=== PATIENT | female | born 1970 | race Caucasian/White ===

== ENCOUNTER 2016-10-02 07:53 | Inpatient (IN) | payer OTHER, BC ==
[2016-10-02 07:59] VITALS: BMI 39.4
[2016-10-02] MEDS ORDERED: DIPHTH,PERTUSS(ACELL),TET 0.5 ML DISP.SYRIN IM ONE (08:29)
--- NOTE | 2016-10-02 09:03 | PDOC ---
History of Present Illness - General Chief Complaint: Injury Stated Complaint: INJURY Time Seen by Provider: 10/02/16 08:22 History Source: Patient Exam Limitations: No Limitations - History of Present Illness Initial Comments: 10/02/16 08:49 Patient is a 46-year-old morbidly obese female, history of asthma denies any other significant medical history presents emergency Department with pain, pustulant drainage to right first finger originating from under nail bed. Patient states that infection started after cleaning air vents at work using a floor stripping agent. Was seen in urgent care on 09/26/16. Xray was eprformed and patient was started on azithromycin. Now reports stabbing pain to the 1st finger entending to the palm of the hand, decreased mobility of the PIP right first finger, stabbing pain on extension. Patient reports being unable to sleep , has to keep finger in cup of cold water.Has been taking Motrin 800 mg for pain with no resolve. Paitent denies fever, no chills, or rigors. Allergies: Seafood, PCN, bee stings Medications: Azithromycin, proair Family History: Non-contributory Social History: + smoker, no alcohol use, or IVDU Vital signs on arrival are notable for pulse of 88 . Review of Systems GENERAL/CONSTITUTIONAL: No fever or chills. No weakness. No weight change. HEAD, EYES, EARS, NOSE AND THROAT: No change in vision. No ear pain or discharge. No sore throat. CARDIOVASCULAR: No chest pain or shortness of breath. RESPIRATORY: No cough, wheezing, or hemoptysis. GASTROINTESTINAL: No nausea, vomiting, diarrhea or constipation. No rectal bleeding. GENITOURINARY: No dysuria, frequency, or change in urination. MUSCULOSKELETAL: No joint or muscle swelling or pain. No neck or back pain. Pain decreased mobility to the right first finger, pain with extension. SKIN: Erythema to the right first finger tip, + pustulent drainage NEUROLOGIC: No headache, vertigo, loss of consciousness, or loss of sensation. PSYCHIATRIC: No depression or anxiety. ENDOCRINE: No increased thirst. No abnormal weight change. HEMATOLOGIC/LYMPHATIC: No anemia, easy bleeding, or history of blood clots. ALLERGIC/IMMUNOLOGIC: No hives or skin allergy. No latex allergy. Physical Exam: GENERAL: The patient is awake, alert, and fully oriented, in no acute distress. EYES: Pupils equal, round and reactive to light, extraocular movements intact, sclera anicteric, conjunctiva clear. ENT: Ears normal, nares patent, oropharynx clear without exudates. Moist mucous membranes. No uvula deviation NECK: Normal range of motion, supple without lymphadenopathy, JVD, or masses. LUNGS: Breath sounds equal, clear to auscultation bilaterally. No wheezes, and no crackles. HEART: Regular rate and rhythm, normal S1 and S2 without murmur, rub or gallop. ABDOMEN: Soft, nontender, normoactive bowel sounds. No guarding, no rebound. No masses. No bruising or abrasions MUSCULOSKELETAL: Decreased ROM to the right first finger, pain with minor extension, +edema, + pustulent drainge to the tip of the right first finger. + streaking lateral aspect of same. NEUROLOGICAL: Cranial nerves II through XII grossly intact. Normal speech, normal gait. SKIN: Warm, Dry, normal turgor, no rashes or lesions noted. as noted above. Past History - Past Medical History Allergies/Adverse Reactions: Allergies Allergy/AdvReac Type Severity Reaction Status Date / Time bee pollen Allergy Verified 10/02/16 07:55 Penicillins Allergy Verified 10/02/16 07:55 Asthma: Yes - Psycho/Social/Smoking Cessation Hx Anxiety: No Suicidal Ideation: No Smoking History: Current every day smoker Have you smoked in the past 12 months: Yes Number of Cigarettes Smoked Daily: 20 Information on smoking cessation initiated: Yes 'Breaking Loose' booklet given: 10/02/16 Hx Alcohol Use: No Drug/Substance Use Hx: No Substance Use Type: None *Physical Exam - Vital Signs Last Vital Signs Temp Pulse Resp BP Pulse Ox 97.7 F 88 18 129/77 100 10/02/16 07:55 10/02/16 07:55 10/02/16 07:55 10/02/16 07:55 10/02/16 07:55 ED Treatment Course - LABORATORY CBC & Chemistry Diagram: 10/03/16 06:00 10/03/16 06:00 - Medications Given in the ED: ED Medications Discontinued Medications Generic Name Dose Route Start Last Admin Trade Name Freq PRN Reason Stop Dose Admin Diphtheria/Tetanus/Acell Pertussis 0.5 ml 10/02/16 08:29 10/02/16 08:39 Boostrix - IM 10/02/16 08:30 0.5 ml .ONCE ONE Administration Medical Decision Making - Medical Decision Making 10/02/16 09:26 A/P : Patient with infection noted to right first streaking, failed one week antibiotic course, azithromycin. Patient with increased pain, decreased mobility , high concern for flexor tendon involvement. Patient will be transferred to main emergency department for 23 hour observation, IV antibiotics and further evaluation. Report given to Dr. Goldsmith. Patient stable for transfer. Patient was initially triaged to [facility]. After review of the history of present illness and physical examination by Nurse Practitioner, the patient was transferred to the main ED for higher lever of care. The patient is medically stable for transfer. 10/02/16 12:16 *DC/Admit/Observation/Transfer Diagnosis at time of Disposition: Flexor carpi radialis tenosynovitis - Discharge Dispostion Condition at time of disposition: Stable
[2016-10-02] MEDS ORDERED: CLINDAMYCIN 600MG PREMIX IVPB 50 ML IVPB ONE ×2 (09:31→10:02)
[2016-10-02] MEDS ORDERED: LEVOFLOXACIN 750 MG IVPB 150 ML IVPB ONE ×2 (09:33→10:03)
--- NOTE | 2016-10-02 09:37 | PDOC ---
*Physical Exam - Vital Signs Last Vital Signs Temp Pulse Resp BP Pulse Ox 97.7 F 88 18 129/77 100 10/02/16 07:55 10/02/16 07:55 10/02/16 07:55 10/02/16 07:55 10/02/16 07:55 - Physical Exam General Appearance: Yes: Nourished, Obese. No: Apparent Distress HEENT: positive: Normal Voice, Hearing Grossly Normal Respiratory/Chest: positive: Wheezing (diffuse b/l expiratory wheezes). negative: Chest Tender Cardiovascular: positive: Regular Rhythm, Regular Rate, S1, S2. negative: Diastolic Murmur, Systolic Murmur Gastrointestinal/Abdominal: positive: Flat, Soft, Protuberent. negative: Tender Musculoskeletal: negative: CVA Tenderness, CVA Tenderness (R), CVA Tenderness (L ) Extremity: positive: Swelling (+1 b/l LE) Integumentary: positive: Dry, Warm Neurologic: positive: Fully Oriented, Alert, Normal Mood/Affect, Motor Strength 06/16 ED Treatment Course - LABORATORY CBC & Chemistry Diagram: 10/03/16 06:00 10/03/16 06:00 - Medications Given in the ED: ED Medications Discontinued Medications Generic Name Dose Route Start Last Admin Trade Name Freq PRN Reason Stop Dose Admin Diphtheria/Tetanus/Acell Pertussis 0.5 ml 10/02/16 08:29 10/02/16 08:39 Boostrix - IM 10/02/16 08:30 0.5 ml .ONCE ONE Administration Medical Decision Making - Medical Decision Making 10/02/16 09:33 Patient is transferred from [facility] track. 46F with a PMH of obesity and asthma presents to the ED with a painful R 1st digit. She states that pus is draining from the site. She was cleaning with an abrasive material and is unsure if there are foreign bodies in the hand. XR ordered. I will put in basic labs and treat with IV abx (levaquin for pseudomonas coverage and clinda for soft tissue infection) 10/02/16 10:02 10/02/16 11:19 Labs WNL. Will call hospitalist for obs admission for IV abx. *DC/Admit/Observation/Transfer Diagnosis at time of Disposition: Flexor carpi radialis tenosynovitis - Discharge Dispostion Condition at time of disposition: Stable Admit: Yes - Attestations Physician Attestion: 10/04/16 08:35 I, Dr. Cornell Goldsmith, attest that this document has been prepared under my direction and personally reviewed by me in its entirety. I further attest, that it accurately reflects all work, treatment, procedures and medical decision -making performed by me.
[2016-10-02 10:41] LABS: BASOPHIL 0.8 % (0-2.0); EOSINOPHIL 2.1 % (0-4.5); MCH 29.8 pg (25.7-33.7); MCHC 34.1 g/dl (32.0-36.0); MEAN CELL VOLUME 87.5 fl (80-96); NEUTROPHILS 65.9 % (42.8-82.8); PLATELET COUNT 241 K/MM3 (134-434); WHITE BLOOD COUNT 9.9 K/mm3 (4.0-10.0)
[2016-10-02 11:01] LABS: ALBUMIN 3.8 g/dl (3.4-5.0); ANION GAP 8 (8-16); CALCIUM 8.7 mg/dL (8.5-10.1); CO2 28 mmol/L (21-32); GLUCOSE,RANDOM 139 mg/dL (74-106); SGOT/AST 13 U/L (15-37); SGPT/ALT 25 U/L (12-78)
[2016-10-02 11:03] LABS: ALK PHOS 98 U/L (45-117); BILIRUBIN,TOTAL 0.5 mg/dL (0.2-1.0); CREATININE 0.8 mg/dL (0.55-1.02); TOT PROT 7.2 g/dl (6.4-8.2)
[2016-10-02] MEDS ORDERED: IBUPROFEN 400 MG TABLET (FP) PO ONE ×2 (11:52→12:10)
--- NOTE | 2016-10-02 16:24 | PDOC ---
*Physical Exam - Vital Signs Last Vital Signs Temp Pulse Resp BP Pulse Ox 97.7 F 88 18 129/77 100 10/02/16 07:55 10/02/16 07:55 10/02/16 07:55 10/02/16 07:55 10/02/16 07:55 ED Treatment Course - LABORATORY CBC & Chemistry Diagram: 10/02/16 10:00 10/02/16 10:00 - ADDITIONAL ORDERS Additional order review: Laboratory Results 10/02/16 10:00 Sodium 140 Potassium 4.0 Chloride 104 Carbon Dioxide 28 Anion Gap 8 BUN 13 Creatinine 0.8 Creat Clearance w eGFR > 60 Random Glucose 139 H Calcium 8.7 Total Bilirubin 0.5 AST 13 L ALT 25 Alkaline Phosphatase 98 Total Protein 7.2 Albumin 3.8 10/02/16 09:18 Gram Stain - Final Finger - Right Thumb 10/02/16 10:00 RBC 4.86 MCV 87.5 MCHC 34.1 RDW 14.0 MPV 9.0 Neutrophils % 65.9 Lymphocytes % 24.2 Monocytes % 7.0 Eosinophils % 2.1 Basophils % 0.8 - Medications Given in the ED: ED Medications Discontinued Medications Generic Name Dose Route Start Last Admin Trade Name Freq PRN Reason Stop Dose Admin Diphtheria/Tetanus/Acell Pertussis 0.5 ml 10/02/16 08:29 10/02/16 08:39 Boostrix - IM 10/02/16 08:30 0.5 ml .ONCE ONE Administration Clindamycin Phosphate 50 mls @ 100 mls/hr 10/02/16 09:31 10/02/16 09:35 Cleocin 600 Mg Premix Ivpb - IVPB 10/02/16 10:00 100 mls/hr ONCE ONE Administration Levofloxacin 150 mls @ 100 mls/hr 10/02/16 09:33 10/02/16 10:55 Levaquin 750 Mg Premixed Ivpb - IVPB 10/02/16 11:02 100 mls/hr ONCE ONE Administration Ibuprofen 800 mg 10/02/16 11:52 10/02/16 12:13 Motrin - PO 10/02/16 11:53 800 mg ONCE ONE Administration Medical Decision Making - Medical Decision Making 10/02/16 16:20 I agree with VACUUM CASTER Andolino's history, assessment and plan. In summary, patient was treated for an outpatient paronychia with azithromycin and presents today with worsening redness tracking down her right thumb. Concern is for flexor tenosynovitis, patient has pain with passive extension and pain with flexion as well. Entire flexor tendon is tender to palpation. Will cover patient with levaquin and clinda for pseudomonas and MRSA coverage. WIll also admit to obs to ensure improvement with abx and for possible ortho eval. *DC/Admit/Observation/Transfer Diagnosis at time of Disposition: Flexor carpi radialis tenosynovitis - Discharge Dispostion Condition at time of disposition: Stable - Attestations Physician Attestion: 10/02/16 18:07 I, Dr. Michoacano Torres MD, attest that this document has been prepared under my direction and personally reviewed by me in its entirety. I further attest, that it accurately reflects all work, treatment, procedures and medical decision -making performed by me.
--- NOTE | 2016-10-02 17:19 | EKG ---
Test Reason : Blood Pressure : / mmHG Vent. Rate : 073 BPM Atrial Rate : 073 BPM P-R Int : 168 ms QRS Dur : 090 ms QT Int : 410 ms P-R-T Axes : 056 083 040 degrees QTc Int : 451 ms NORMAL SINUS RHYTHM NORMAL ECG NO PREVIOUS ECGS AVAILABLE Confirmed by JOVANA MENDOZA MD ([id number]) on 10/02/2016 5:19:00 PM Referred By: Confirmed By:JOVANA MENDOZA MD
--- NOTE | 2016-10-02 19:01 | HP ---
Admitting History and Physical - Primary Care Physician PCP: Bonnie Mireles - Admission History of Present Illness: 46-year-old morbidly obese female, history of asthma denies any other significant medical history presents emergency Department with pain, pustulant drainage to right first finger originating from under nail bed. Patient states that infection started after cleaning air vents at work using a floor stripping agent. Was seen in urgent care on 09/26/16. Xray was eprformed and patient was started on azithromycin. Now reports stabbing pain to the 1st finger entending to the palm of the hand, decreased mobility of the PIP right first finger, stabbing pain on extension. - Past Medical History Pulmonary: Yes: Asthma - Smoking History Smoking history: Current every day smoker Have you smoked in the past 12 months: Yes Aproximately how many cigarettes per day: 20 - Alcohol/Substance Use Hx Alcohol Use: No Home Medications - Allergies Allergies/Adverse Reactions: Allergies Allergy/AdvReac Type Severity Reaction Status Date / Time bee pollen Allergy Verified 10/02/16 07:55 Penicillins Allergy Verified 10/02/16 07:55 Physical Examination Vital Signs: Vital Signs Temperature 97.7 F 10/02/16 07:55 Pulse Rate 88 10/02/16 07:55 Respiratory Rate 18 10/02/16 07:55 Blood Pressure 129/77 10/02/16 07:55 O2 Sat by Pulse Oximetry (%) 100 10/02/16 07:55 Constitutional: Yes: No Distress HENT: Yes: Atraumatic Neck: Yes: Supple Cardiovascular: Yes: Regular Rate and Rhythm Respiratory: Yes: CTA Bilaterally Gastrointestinal: Yes: Normal Bowel Sounds Extremities: Yes: Other (cellulitis R THUMB) Peripheral Pulses WNL: Yes Neurological: Yes: Alert, Oriented Problem List - Problems (1) Flexor carpi radialis tenosynovitis Assessment/Plan: IV ABX Code(s): M65.9 - SYNOVITIS AND TENOSYNOVITIS, UNSPECIFIED Assessment/Plan Laboratory Tests 10/02/16 10/02/16 10:00 10:00 WBC 9.9 RBC 4.86 Hgb 14.5 Hct 42.6 MCV 87.5 MCH 29.8 MCHC 34.1 RDW 14.0 Plt Count 241 MPV 9.0 Neutrophils % 65.9 Lymphocytes % 24.2 Monocytes % 7.0 Eosinophils % 2.1 Basophils % 0.8 Sodium 140 Potassium 4.0 Chloride 104 Carbon Dioxide 28 Anion Gap 8 BUN 13 Creatinine 0.8 Creat Clearance w eGFR > 60 Random Glucose 139 H Calcium 8.7 Total Bilirubin 0.5 AST 13 L ALT 25 Alkaline Phosphatase 98 Total Protein 7.2 Albumin 3.8 Active Medications Generic Name Dose Route Start Last Admin Trade Name Freq PRN Reason Stop Dose Admin Acetaminophen 650 mg 10/02/16 19:03 Tylenol - PO Q6H PRN FEVER OR PAIN Clindamycin Phosphate 50 mls @ 100 mls/hr 10/02/16 21:00 10/04/16 09:57 Cleocin 300 Mg Premix Ivpb IVPB 100 mls/hr Q6H-IV BECKIE Administration Ibuprofen 800 mg 10/03/16 11:47 10/03/16 18:10 Motrin - PO 800 mg Q6H PRN Administration PAIN
[2016-10-02] MEDS ORDERED: ACETAMINOPHEN 325 MG TABLET (FP) PO PRN (19:03)
[2016-10-02] MEDS: CLINDAMYCIN 300 MG PREMIX IVPB 50 ML IVPB SCH ×2 (22:00→22:54)
[2016-10-02] MEDS ORDERED: oxyCODONE HCL 5 MG TABLET PO PRN (22:01)
[2016-10-02] MEDS: CLINDAMYCIN HCL 150 MG CAPSULE (FP) PO SCH (23:36)
[2016-10-03] MEDS: CLINDAMYCIN HCL 150 MG CAPSULE (FP) PO SCH (03:38)
[2016-10-03] MEDS ORDERED: IBUPROFEN 400 MG TABLET (FP) PO ONE (06:00)
[2016-10-03 07:46] LABS: BASOPHIL 0.8 % (0-2.0); EOSINOPHIL 3.5 % (0-4.5); MCH 28.8 pg (25.7-33.7); MCHC 33.1 g/dl (32.0-36.0); MEAN CELL VOLUME 87.2 fl (80-96); MEAN PLT VOLUME 8.9 fl (7.5-11.1); NEUTROPHILS 59.2 % (42.8-82.8); PLATELET COUNT 202 K/MM3 (134-434); RDW 13.8 % (11.6-15.6); WHITE BLOOD COUNT 7.7 K/mm3 (4.0-10.0)
[2016-10-03 08:09] LABS: ALBUMIN 3.5 g/dl (3.4-5.0); ANION GAP 7 (8-16); CALCIUM 9.1 mg/dL (8.5-10.1); CO2 27 mmol/L (21-32); GLUCOSE,RANDOM 124 mg/dL (74-106)
[2016-10-03 08:13] LABS: ALK PHOS 67 U/L (45-117); BILIRUBIN,TOTAL 0.6 mg/dL (0.2-1.0); CREATININE 0.8 mg/dL (0.55-1.02); SGOT/AST 15 U/L (15-37); SGPT/ALT 22 U/L (12-78); TOT PROT 6.7 g/dl (6.4-8.2)
[2016-10-03] MEDS ORDERED: PT OWN MED DRAWER 7, Y5N ONE ×2 (11:05→15:30)
[2016-10-03] MEDS: CLINDAMYCIN 300 MG PREMIX IVPB 50 ML IVPB SCH ×3 (11:38→20:55)
[2016-10-03] MEDS: IBUPROFEN 400 MG TABLET (FP) PO PRN ×2 (11:52→18:10)
--- NOTE | 2016-10-03 15:38 | CONSULT ---
Consult Consult Specialty:: infectious diseases Referred by:: dr cleary Reason for Consultation:: finger swelling and abscess - History of Present Illness Chief Complaint: swelling and pain of the finger History of Present Illness: 46-year-old morbidly obese female, history of asthma denies any other significant medical history presents emergency Department with pain, pustulant drainage to right first finger originating from under nail bed. Patient states that infection started after cleaning air vents at work using a floor stripping agent. Was seen in urgent care on 09/26/16. Xray was eprformed and patient was started on azithromycin. Now reports stabbing pain to the 1st finger extending to the palm of the hand, decreased mobility of the PIP right first finger, stabbing pain on extension. Patient reports being unable to sleep, has to keep finger in cup of cold water.Has been taking Motrin 800 mg for pain with no resolve. Paitent denies fever, no chills, or rigors. patient says she denied any other issues - History Source History Provided By: Patient Limitations to Obtaining History: No Limitations - Past Medical History Pulmonary: Yes: Asthma - Alcohol/Substance Use Hx Alcohol Use: No - Smoking History Smoking history: Current every day smoker Have you smoked in the past 12 months: Yes Aproximately how many cigarettes per day: 20 Home Medications - Allergies Allergies/Adverse Reactions: Allergies Allergy/AdvReac Type Severity Reaction Status Date / Time bee pollen Allergy Verified 10/02/16 07:55 Penicillins Allergy Verified 10/02/16 07:55 Review of Systems - Review of Systems Constitutional: reports: No Symptoms Eyes: reports: No Symptoms HENT: reports: No Symptoms Neck: reports: No Symptoms Cardiovascular: reports: No Symptoms Respiratory: reports: No Symptoms Gastrointestinal: reports: No Symptoms Genitourinary: reports: No Symptoms Breasts: reports: No Symptoms Reported Musculoskeletal: reports: Joint Pain, Other Integumentary: reports: Erythema, Other Neurological: reports: No Symptoms Endocrine: reports: No Symptoms Hematology/Lymphatic: reports: No Symptoms Psychiatric: reports: No Symptoms Physical Exam Vital Signs: Vital Signs Temperature 98.3 F 10/03/16 14:27 Pulse Rate 72 10/03/16 14:27 Respiratory Rate 22 10/03/16 14:27 Blood Pressure 97/73 10/03/16 14:27 O2 Sat by Pulse Oximetry (%) 98 10/03/16 11:35 Constitutional: Yes: Well Nourished, No Distress, Calm Eyes: Yes: Conjunctiva Clear HENT: Yes: Atraumatic Neck: Yes: Supple Cardiovascular: Yes: Regular Rate and Rhythm Respiratory: Yes: Regular, CTA Bilaterally Gastrointestinal: Yes: Normal Bowel Sounds, Soft Musculoskeletal: Yes: Other Extremities: Yes: Erythema, Other (finger swelling) Wound/Incision: Yes: Other Neurological: Yes: Alert, Oriented Psychiatric: Yes: Alert, Oriented Labs: CBC, BMP 10/03/16 06:00 10/03/16 06:00 Imaging - Results Chest X-ray: Report Reviewed, Image Reviewed X-ray: Report Reviewed, Image Reviewed Assessment/Plan Problem List - Problems (1) Flexor carpi radialis tenosynovitis Code(s): M65.9 - SYNOVITIS AND TENOSYNOVITIS, UNSPECIFIED foreign body in the finger abscess of the finger patient allergic to pcn started on clinda plan continue current mgmt will see if patient does improve
--- NOTE | 2016-10-03 15:45 | PN ---
Progress Note, Physician History of Present Illness: doing well still swelling of the finger present - Current Medication List Current Medications: Active Medications Acetaminophen (Tylenol -) 650 mg PO Q6H PRN PRN Reason: FEVER OR PAIN Clindamycin Phosphate (Cleocin 300 Mg Premix Ivpb) 50 mls @ 100 mls/hr IVPB Q6H -IV BECKIE Last Admin: 10/03/16 11:38 Dose: 100 mls/hr Ibuprofen (Motrin -) 800 mg PO Q6H PRN PRN Reason: PAIN Last Admin: 10/03/16 11:52 Dose: 800 mg - Objective Vital Signs: Vital Signs Temperature 98.3 F 10/03/16 14:27 Pulse Rate 72 10/03/16 14:27 Respiratory Rate 22 10/03/16 14:27 Blood Pressure 97/73 10/03/16 14:27 O2 Sat by Pulse Oximetry (%) 98 10/03/16 11:35 Constitutional: Yes: No Distress, Calm Cardiovascular: Yes: Regular Rate and Rhythm Respiratory: Yes: Regular, CTA Bilaterally Gastrointestinal: Yes: Normal Bowel Sounds, Soft Musculoskeletal: Yes: WNL Extremities: Yes: Other Wound/Incision: Yes: Clean/Dry Neurological: Yes: Alert, Oriented Psychiatric: Yes: Alert, Oriented Labs: CBC, BMP 10/03/16 06:00 10/03/16 06:00 Assessment/Plan Problem List - Problems (1) Flexor carpi radialis tenosynovitis Code(s): M65.9 - SYNOVITIS AND TENOSYNOVITIS, UNSPECIFIED foreign body in the finger abscess of the finger patient allergic to pcn started on clinda plan continue abx we should get hand surgeon involved chances are she might need drainage
--- NOTE | 2016-10-03 18:11 | PN ---
Progress Note, Physician - Current Medication List Current Medications: Active Medications Acetaminophen (Tylenol -) 650 mg PO Q6H PRN PRN Reason: FEVER OR PAIN Clindamycin Phosphate (Cleocin 300 Mg Premix Ivpb) 50 mls @ 100 mls/hr IVPB Q6H -IV BECKIE Last Admin: 10/03/16 16:16 Dose: 100 mls/hr Ibuprofen (Motrin -) 800 mg PO Q6H PRN PRN Reason: PAIN Last Admin: 10/03/16 11:52 Dose: 800 mg - Objective Vital Signs: Vital Signs Temperature 98.3 F 10/03/16 14:27 Pulse Rate 72 10/03/16 14:27 Respiratory Rate 22 10/03/16 14:27 Blood Pressure 97/73 10/03/16 14:27 O2 Sat by Pulse Oximetry (%) 98 10/03/16 11:35 Constitutional: Yes: No Distress HENT: Yes: Atraumatic Neck: Yes: Supple Cardiovascular: Yes: Regular Rate and Rhythm Respiratory: Yes: CTA Bilaterally Gastrointestinal: Yes: Normal Bowel Sounds Extremities: Yes: Other (THUMB LOOKING BETTER) Neurological: Yes: Alert, Oriented Labs: CBC, BMP 10/03/16 06:00 10/03/16 06:00 Problem List - Problems (1) Flexor carpi radialis tenosynovitis Assessment/Plan: IV ABX hand surgeon to see pt Code(s): M65.9 - SYNOVITIS AND TENOSYNOVITIS, UNSPECIFIED
--- NOTE | 2016-10-04 09:26 | CONSULT ---
Consult Consult Specialty:: ORTHOPEDIC SURGERY Reason for Consultation:: THUMB PAIN - RIGHT - History Source History Provided By: Patient - Past Medical History Pulmonary: Yes: Asthma - Alcohol/Substance Use Hx Alcohol Use: No - Smoking History Smoking history: Current every day smoker Have you smoked in the past 12 months: Yes Aproximately how many cigarettes per day: 20 Home Medications - Allergies Allergies/Adverse Reactions: Allergies Allergy/AdvReac Type Severity Reaction Status Date / Time bee pollen Allergy Verified 10/02/16 07:55 Penicillins Allergy Verified 10/02/16 07:55 Physical Exam Vital Signs: Vital Signs Temperature 98 F 10/04/16 07:47 Pulse Rate 72 10/04/16 07:47 Respiratory Rate 20 10/04/16 07:47 Blood Pressure 127/76 10/04/16 07:47 O2 Sat by Pulse Oximetry (%) 98 10/03/16 21:00 Musculoskeletal: Yes: Other (THUMB TENDERNESS DISTAL RIGHT THUMB) Labs: CBC, BMP 10/03/16 06:00 10/03/16 06:00 Imaging - Results X-ray: Image Reviewed (RIGHT HAND WNL) Problem List - Problems (1) Infection of thumb Code(s): L08.9 - LOCAL INFECTION OF THE SKIN AND SUBCUTANEOUS TISSUE, UNSP Assessment/Plan IMP: RIGHT THUMB INFECTION RESOLVING ON IV CLINDAMYCIN PLAN: CONTINUE ABX, WARM SOAKS, WILL FOLLOW FULL CONSULTATION DICTATED
[2016-10-04] MEDS ORDERED: PT OWN MED DRAWER 7, Y5N ONE ×2 (09:50→15:00)
[2016-10-04] MEDS: CLINDAMYCIN 300 MG PREMIX IVPB 50 ML IVPB SCH ×2 (09:57→15:31)
--- NOTE | 2016-10-04 13:07 | PN ---
Progress Note, Physician History of Present Illness: feeling good - Current Medication List Current Medications: Active Medications Acetaminophen (Tylenol -) 650 mg PO Q6H PRN PRN Reason: FEVER OR PAIN Clindamycin Phosphate (Cleocin 300 Mg Premix Ivpb) 50 mls @ 100 mls/hr IVPB Q6H -IV BECKIE Last Admin: 10/04/16 09:57 Dose: 100 mls/hr Ibuprofen (Motrin -) 800 mg PO Q6H PRN PRN Reason: PAIN Last Admin: 10/03/16 18:10 Dose: 800 mg - Objective Vital Signs: Vital Signs Temperature 98.3 F 10/04/16 09:57 Pulse Rate 62 10/04/16 09:57 Respiratory Rate 20 10/04/16 09:57 Blood Pressure 119/68 10/04/16 09:57 O2 Sat by Pulse Oximetry (%) 98 10/03/16 21:00 Constitutional: Yes: No Distress HENT: Yes: Atraumatic Neck: Yes: Supple Respiratory: Yes: CTA Bilaterally Gastrointestinal: Yes: Normal Bowel Sounds Extremities: Yes: Other (R thumb cellulitis improving) Neurological: Yes: Alert, Oriented Labs: CBC, BMP 10/03/16 06:00 10/03/16 06:00 Problem List - Problems (1) Flexor carpi radialis tenosynovitis Assessment/Plan: IV ABX dr sidhu note seen awaiting id to let me know if pt can be dc on po abx Code(s): M65.9 - SYNOVITIS AND TENOSYNOVITIS, UNSPECIFIED
--- NOTE | 2016-10-04 13:55 | CONS ---
ORTHOPEDIC CONSULTATION/[facility] DATE OF CONSULTATION: 10/04/2016 HISTORY OF PRESENT ILLNESS: The patient is a 46-year-old female with no significant past medical history except for a long history of smoking who presents with a swollen and painful right thumb. 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 She removed them herself and thought nothing of it but then presented with increasing pain and swelling. She went to an urgicenter where they put her on erythromycin which did not help her situation and she now presents to the [facility] Emergency Room complaining of pain in this location. On admission, her white count was 9.9. It has now gone down to 7.7. The PMD has placed the patient on IV clindamycin (the patient is PENICILLIN allergic). Her white count now is 7.7. The patient feels remarkably better than she did when she came into the hospital. PHYSICAL EXAMINATION: Right Thumb: She has no erythema. She has some bogginess to the distal tip and tuft of the thumb. It appears that there was some drainage from underneath the nail which has stopped. I tried expressing some and got back a tiny amount of fluid. She does not have a subungual hematoma. She has good motion of the IP, MP and CMC joints. No erythema. No lymphangitis and otherwise full range of motion. X-rays taken in the hospital show no fracture, dislocation or blastic lesions and no metallic fragments in the thumb. IMPRESSION: Infection, right thumb, now resolving on IV clindamycin. PLAN: I recommend continuing IV antibiotics for another day or two, then switching to p.o. I recommend warm soaks. The patient should soak the thumb in a basin of warm water a few times a day. Elevation. I recommend the patient stop smoking or at least decrease her smoking for the next few days. I always recommend stopping smoking, but at least in the near future. I will follow the patient closely while she is in the hospital. CHARLES RAIN M.D. [id number]
[2016-10-04] MEDS: IBUPROFEN 400 MG TABLET (FP) PO PRN (15:54)
--- NOTE | 2016-10-04 16:23 | PN ---
Progress Note, Physician History of Present Illness: patient doing well patient ruptured her abscess now the finger looks good - Current Medication List Current Medications: Active Medications Acetaminophen (Tylenol -) 650 mg PO Q6H PRN PRN Reason: FEVER OR PAIN Ibuprofen (Motrin -) 800 mg PO Q6H PRN PRN Reason: PAIN Last Admin: 10/04/16 15:54 Dose: 800 mg - Objective Vital Signs: Vital Signs Temperature 97.7 F 10/04/16 14:10 Pulse Rate 60 10/04/16 14:10 Respiratory Rate 20 10/04/16 14:10 Blood Pressure 132/83 10/04/16 14:10 O2 Sat by Pulse Oximetry (%) 97 10/04/16 11:00 Constitutional: Yes: No Distress, Calm Cardiovascular: Yes: Regular Rate and Rhythm Respiratory: Yes: Regular, CTA Bilaterally Gastrointestinal: Yes: Normal Bowel Sounds, Soft Extremities: Yes: Other Integumentary: Yes: Other Wound/Incision: Yes: Clean/Dry, Open to air Neurological: Yes: Alert, Oriented Psychiatric: Yes: Alert, Oriented Labs: CBC, BMP 10/03/16 06:00 10/03/16 06:00 Assessment/Plan Problem List - Problems (1) Flexor carpi radialis tenosynovitis Code(s): M65.9 - SYNOVITIS AND TENOSYNOVITIS, UNSPECIFIED foreign body in the finger abscess of the finger patient allergic to pcn started on clinda plan changed abx to oral await for all cx reports
[2016-10-04] MEDS: CLINDAMYCIN HCL 150 MG CAPSULE (FP) PO SCH ×2 (18:00→23:08)
[2016-10-05] MEDS: CLINDAMYCIN HCL 150 MG CAPSULE (FP) PO SCH ×2 (05:53→12:12)
[2016-10-05] MEDS: IBUPROFEN 400 MG TABLET (FP) PO PRN (05:55)
--- NOTE | 2016-10-05 08:34 | PN ---
Progress Note (short form) - Note Progress Note: AVSS COMFORTABLE LESS SWELLING AND TENDERNESS NO REDNESS EXCELLENT AROM IMP: DOING WELL PLAN: DC TO HOME ON PO ABX, F/U IN MY OFFICE IN 1 WEEK Problem List - Problems (1) Infection of thumb Code(s): L08.9 - LOCAL INFECTION OF THE SKIN AND SUBCUTANEOUS TISSUE, UNSP
--- NOTE | 2016-10-05 13:54 | DS ---
Physical Examination Vital Signs: Vital Signs Temperature 97.8 F 10/05/16 06:00 Pulse Rate 66 10/05/16 06:00 Respiratory Rate 20 10/05/16 06:00 Blood Pressure 138/90 10/05/16 06:00 O2 Sat by Pulse Oximetry (%) 97 10/04/16 11:00 Constitutional: Yes: No Distress HENT: Yes: Atraumatic Neck: Yes: Supple Cardiovascular: Yes: Regular Rate and Rhythm Respiratory: Yes: CTA Bilaterally Gastrointestinal: Yes: Normal Bowel Sounds Extremities: Yes: Other (r thumb improving) Neurological: Yes: Alert, Oriented Labs: CBC, BMP 10/03/16 06:00 10/03/16 06:00 Discharge Summary Reason For Visit: FLEXOR CARPI RADIALIS TENOSYNOVITIS Current Active Problems Flexor carpi radialis tenosynovitis (Acute) Infection of thumb (Acute) Condition: Stable - Instructions Diet, Activity, Other Instructions: see dr lyon 1 week Referrals: Bonnie Lyon MD [Staff Physician] - - Home Medications Comprehensive Discharge Medication List: Ambulatory Orders Clindamycin [Cleocin -] 300 mg PO Q6HPO #30 cap MDD 2 10/05/16 Ibuprofen [Motrin -] 800 mg PO Q6H PRN #20 tablet 10/05/16 dc on po clinda cxs noted pt will see me in office in 1 week
[2016-10-05 16:03] VITALS: BP 126/84; PULSE 76; TEMP 98.2
== END 2016-10-05 15:10 | disposition home or self-care (01) | DRG 351 ==
LOC: JERFT 07:53 → JER 07:53 → JERBED 17:32 → J5S 20:49
PROVIDERS: ADMIT Internal Medicine; ATTEND Internal Medicine
DX: M65.841 Other synovitis and tenosynovitis, right hand (principal); E66.8 Other obesity; Z68.39 Body mass index [BMI] 39.0-39.9, adult; L03.011 Cellulitis of right finger; J45.909 Unspecified asthma, uncomplicated; F17.210 Nicotine dependence, cigarettes, uncomplicated; L02.511 Cutaneous abscess of right hand; Z88.0 Allergy status to penicillin
CPT/HCPCS: 36415; 71020-TC; 73130-TC-RT; 80053; 85025; 87040; 87070; 87184; 87205; 90715; 93005; 93010; 99283-25

== ENCOUNTER 2017-12-19 13:42 | Emergency (ER) | payer OTHER ==
[2017-12-19 14:02] VITALS: TEMP 98.1; BMI 89.8
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
[2017-12-19] MEDS ORDERED: KETOROLAC TROMETHAMINE 30 MG/1 ML VIAL IVPUSH ONE (15:10)
[2017-12-19] MEDS ORDERED: KETOROLAC TROMETHAMINE 30 MG/1 ML VIAL IM ONE (15:24)
[2017-12-19] MEDS ORDERED: KETOROLAC TROMETHAMINE 30 MG/1 ML VIAL ONE (15:33)
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
[2017-12-19] MEDS ORDERED: CYCLOBENZAPRINE HCL 10 MG TABLET (FP) PO ONE (16:20)
[2017-12-19] MEDS ORDERED: LIDOCAINE 5% TOPICAL PATCH TP ONE (16:20)
[2017-12-19] MEDS ORDERED: CYCLOBENZAPRINE HCL 10 MG TABLET (FP) ONE (16:35)
[2017-12-19] MEDS ORDERED: LIDOCAINE 5% TOPICAL PATCH ONE (16:36)
[2017-12-19 18:28] VITALS: BP 163/86; PULSE 74
[2017-12-19] MEDS ORDERED: LIDOCAINE PATCH REMOVAL MC SCH (22:00)
== END 2017-12-19 18:28 | disposition home or self-care (01) ==
LOC: JER 13:42
PROC: 3E0233Z Introduction of Anti-inflammatory into Muscle, Percutaneous Approach (ICD-10-PCS; principal; 2017-12-19)
DX: Z04.1 Encounter for examination and observation following transport accident (principal); I10 Essential (primary) hypertension; F17.210 Nicotine dependence, cigarettes, uncomplicated; J45.909 Unspecified asthma, uncomplicated; J98.4 Other disorders of lung
CPT/HCPCS: 71046-TC-FY; 73110-TC-RT-FY; 73130-TC-RT-FY; 99282-25